=== PATIENT | male | born 1945 | race Native Hawaiian/Other Pacific Islander ===

== ENCOUNTER 2017-06-23 12:57 | Outpatient (CLI) | payer OTHER, BC ==
[~2017-06-23 12:57] MED LIST: ALPR0.2566 PO; BENICAR20 MG PO; DILANTIN30 MG PO; LEVO0.0218 PO; PHEN50CH2 PO; PHENYTOIN EX200 MG OR; VENL75CA2 PO
[2017-06-23 13:37] LABS: PLATELET COUNT 197 K/uL (142-355)
[2017-06-23 13:51] LABS: POTASSIUM 4.3 mmol/L (3.6-5.2); SODIUM 140 mmol/L (136-145)
== END 2017-06-23 19:09 | disposition home or self-care (01) ==
LOC: LAB 12:57
PROVIDERS: Nurse Practitioner Family
DX: I10 Essential (primary) hypertension (principal); E78.4 Other hyperlipidemia; Z79.899 Other long term (current) drug therapy; R53.83 Other fatigue; R53.81 Other malaise; E55.9 Vitamin D deficiency, unspecified
CPT/HCPCS: 80053; 80061; 82306; 82607; 83036; 84436; 84443; 85027

== ENCOUNTER 2019-09-08 13:37 | Outpatient (CLI) | payer OTHER, BC | END 2019-09-08 20:47 | disposition home or self-care (01) | LOC: RAD 13:37 | DX: R06.02 Shortness of breath (principal); G89.11 Acute pain due to trauma; W19.XXXA Unspecified fall, initial encounter ==

== ENCOUNTER 2021-02-13 11:15 | Outpatient (CLI) | payer OTHER, BC | END 2021-02-13 22:02 | disposition home or self-care (01) | LOC: INF 11:15 | PROVIDERS: ATTEND Internal Medicine | DX: Z23 Encounter for immunization (principal) | CPT/HCPCS: 96372 ==

== ENCOUNTER 2021-03-07 11:24 | Outpatient (CLI) | payer OTHER, BC | END 2021-03-07 21:20 | disposition home or self-care (01) | LOC: INF 11:24 | PROVIDERS: ATTEND Internal Medicine | DX: Z23 Encounter for immunization (principal) | CPT/HCPCS: 96372 ==

== ENCOUNTER → 2021-08-07 | Outpatient (CLI) | payer OTHER, BC | LOC: RAD 09:11 | PROVIDERS: ATTEND Nurse Practitioner Family | DX: M25.562 Pain in left knee (principal); M25.462 Effusion, left knee ==

== ENCOUNTER 2022-03-14 10:01 | Outpatient (CLI) | payer OTHER, BC | END 2022-03-14 20:28 | disposition home or self-care (01) | LOC: RAD 10:01 | PROVIDERS: ATTEND Nurse Practitioner Family | DX: M25.562 Pain in left knee (principal) ==